=== PATIENT | female | born 1990 | race Two or more races ===

== ENCOUNTER 2018-10-29 21:02 | Emergency (ER) | payer OTHER ==
[~2018-10-29] VITALS: Ht 152.4 cm; Wt 64.0 kg
[2018-10-29 22:31] VITALS: BP 143/96
[2018-10-29] MEDS ORDERED: HYDROcodone-ACET 7.5/325MG TAB PO ONE (23:00)
[2018-10-29] MEDS ORDERED: BACLOFEN 10 MG TAB PO ONE (23:00)
== END 2018-10-29 23:48 | disposition home or self-care (01) ==
LOC: EDBD 21:02 → ER 21:07
DX: S60.041A Contusion of right ring finger without damage to nail, initial encounter (principal); V49.59XA Passenger injured in collision with other motor vehicles in traffic accident, initial encounter; Y93.89 Activity, other specified; Y99.8 Other external cause status; Y92.410 Unspecified street and highway as the place of occurrence of the external cause
CPT/HCPCS: 29130; 73140